=== PATIENT | male | born 1985 | race Hispanic/Latino ===

== ENCOUNTER 2017-05-07 19:56 | Emergency (ER) | payer SELFPAY ==
[2017-05-07] MEDS ORDERED: AMOXicillin 250 MG CAP ONE (20:56)
[2017-05-07] MEDS ORDERED: Benzonatate 100 MG CAP ONE (20:56)
== END 2017-05-07 21:09 | disposition home or self-care (01) ==
LOC: MADERS 19:56
DX: J20.9 Acute bronchitis, unspecified (principal); F17.210 Nicotine dependence, cigarettes, uncomplicated
CPT/HCPCS: 99283

== ENCOUNTER 2017-09-14 21:27 | Emergency (ER) | payer SELFPAY | END 2017-09-14 22:15 | disposition home or self-care (01) | LOC: MADERS 21:27 | DX: B35.3 Tinea pedis (principal); F17.210 Nicotine dependence, cigarettes, uncomplicated | CPT/HCPCS: 99282 ==